=== PATIENT | female | born 1980 | race Caucasian/White ===

== ENCOUNTER 2020-11-30 00:53 | Emergency (ER) | payer MEDICAID ==
[~2020-11-30] VITALS: Ht 162.6 cm; Wt 95.4 kg
[~2020-11-30 00:53] MED LIST: ATIVAN1 M1 OR; KLONOPIN1 MG OR; LEXAPRO10 MG OR; NAPROSYN500 MG OR; TEGRETOL200 MG OR; TRAZODONE150 MG OR; ZOFRAN ODT4 MG OR
[2020-11-30 01:49] LABS: HEMATOCRIT 44.8 % (37.0-47.0); HEMOGLOBIN 14.6 g/dl (12.0-16.0); IMMATURE GRANULOCYTES 0.4 % (0.0-5.0); MEAN CELL VOLUME 88.9 fL CALC (80.0-100.0); MEAN CORPUSCULAR HGB CONC 32.6 g/dL CAL (32.0-36.0); NEUT# 5.02 thou/uL (2.00-7.15); RED BLOOD COUNT 5.04 mill/uL (4.20-5.60); RED CELL DISTRI WIDTH 12.1 % (11.5-15.5)
[2020-11-30 01:51] LABS: URINE BILIRUBIN - DIPSTICK NEGATIVE (NEGATIVE); URINE BLOOD DIPSTICK NEGATIVE (NEGATIVE); URINE COLOR YELLOW; URINE GLUCOSE - DIPSTICK NEGATIVE (NEGATIVE); URINE KETONE NEGATIVE (NEGATIVE); URINE LEUK ESTERASE NEGATIVE (NEGATIVE); URINE NITRITE - DIPSTICK NEGATIVE (Negative); URINE PROTEIN - DIPSTICK NEGATIVE (NEG-TRACE); URINE SPECIFIC GRAVITY >=1.030; URINE UROBILINOGEN - DIPSTICK 0.2 E.U./dL (0.2)
[2020-11-30] MEDS ORDERED: XARELTO10 MG PO (01:51)
[2020-11-30 01:57] LABS: HCG SERUM/URINE (NEG/POS) NEGATIVE (NEGATIVE)
[2020-11-30 02:14] LABS: ACT PARTIAL THROMBO TIME 25.2 SECONDS (20.0-32.5); PROTHROMBIN TIME 9.6 SECONDS (9.0-12.5)
[2020-11-30 02:25] LABS: D-DIMER 0.6 mg/L (0.19-0.60)
[2020-11-30 02:33] LABS: ALKALINE PHOSPHATASE 138 u/l (38-126); ANION GAP 16 (6-22 (CALC)); BILIRUBIN, TOTAL 0.3 mg/dL (0.0-1.4); BUN 16 mg/dL (7-17); BUN/CREATININE RATIO 28 (12-20 (CALC)); CARBON DIOXIDE 22 mmol/l (22-30); CHLORIDE 103 mmol/l (95-108); CREATININE 0.6 mg/dL (0.5-1.0); GFR > 60 ML/MIN (>=60 (CALC)); GFR FOR AFR.AMER. > 60 ML/MIN (>=60 (CALC)); LIPASE 89 u/l (23-300); POTASSIUM 3.6 mmol/l (3.5-5.1); SGOT/AST 21 u/l (14-36); SODIUM 137 mmol/l (137-146)
[2020-11-30 02:36] LABS: ALBUMIN 4.5 g/dL (3.2-5.0)
[2020-11-30 03:30] VITALS: BP 142/77
[2020-11-30] MEDS ORDERED: VENTOLIN HFA IN ×2 (03:37→03:48)
== END 2020-11-30 03:45 | disposition home or self-care (01) ==
LOC: ED 00:53
DX: J98.09 Other diseases of bronchus, not elsewhere classified (principal); Z86.711 Personal history of pulmonary embolism; Z87.01 Personal history of pneumonia (recurrent); Z79.01 Long term (current) use of anticoagulants; Z87.891 Personal history of nicotine dependence; Z20.822 Contact with and (suspected) exposure to COVID-19